=== PATIENT | female | born 1940 | race Caucasian/White ===

== ENCOUNTER 2021-12-14 07:12 | Inpatient (IN) | payer OTHER ==
[~2021-12-14] VITALS: Ht 152.4 cm; Wt 76.5 kg
[~2021-12-14 07:12] MED LIST: ANAS1TAB7 PO; BENA40TA83 PO; BISO1TAB17 PO; CLON0.1T PO
[2021-12-14] MEDS ORDERED: MORPHINE SULFATE INJ 2 MG/ml SYRG IV PRN (07:30)
[2021-12-14] MEDS ORDERED: NITROGLYCERIN 0.4 MG SL TAB SL PRN (07:30)
[2021-12-14] MEDS ORDERED: ceFAZolin 1GM/50ML 50 ML IV ONE (07:30)
[2021-12-14] MEDS ORDERED: ACETAMINOPHEN 500 MG TAB PO PRN (07:30)
[2021-12-14] MEDS: SODIUM CHLORIDE 0.9% 1,000 ML IV SCH ×3 (07:30→23:30)
[2021-12-14] MEDS ORDERED: METHYLENE BLUE 0.5% 5MG/ML 10ml AMP IV ONE (07:33)
[2021-12-14] MEDS ORDERED: LIDOCAINE W/ EPINEPHRINE 1% 20ML VIAL ONE (07:35)
[2021-12-14] MEDS ORDERED: BUPIVACAINE 0.25% INJ 50ML VIAL ONE (07:35)
[2021-12-14] MEDS ORDERED: ONDANSETRON HCL 4 MG/2 ML VIAL IV ONE (07:54)
[2021-12-14] MEDS ORDERED: MIDAZOLAM HCL 2MG/2ML 2ml VIAL (1mg/ml) ONE (08:43)
[2021-12-14] MEDS ORDERED: fentaNYL CITRATE 5 ML ONE (08:43)
[2021-12-14] MEDS ORDERED: fentaNYL CITRATE 100 MCG/2 ML VL ONE (08:43)
[2021-12-14] MEDS ORDERED: ROCURONIUM 10MG/ML 10ML VIAL IV ONE (08:55)
[2021-12-14] MEDS ORDERED: PROPOFOL 10 MG/ML 20 ML IV ONE ×2 (08:56→09:47)
[2021-12-14] MEDS ORDERED: HYDROmorphone HCL 2 MG/ML VL/or syr ONE (09:50)
[2021-12-14] MEDS ORDERED: ceFAZolin 1GM VL ONE (10:24)
[2021-12-14] MEDS ORDERED: ONDANSETRON HCL 4 MG/2 ML VIAL IV PRN (11:15)
[2021-12-14] MEDS ORDERED: HYDROmorphone HCL 2 MG/ML VL/or syr IV PRN ×2 (11:15)
[2021-12-14] MEDS ORDERED: GLYCOPYRROLATE 0.2 MG/ML 1ML VIAL ONE (11:51)
[2021-12-14] MEDS ORDERED: NALOXONE HCL 0.4 MG/ML VIAL ONE (11:51)
[2021-12-14] MEDS ORDERED: NEOSTIGMINE 1 MG/ML INJ (10mg/10ML VIAL) ONE (11:51)
[2021-12-14] MEDS ORDERED: HYDROmorphone HCL 2 MG/ML VL/or syr IV ONE ×2 (12:13→12:26)
[2021-12-14] MEDS ORDERED: LABETALOL HCL 5 MG/ML 4ML SYRINGE IV ONE ×5 (12:22→13:01)
[2021-12-14] MEDS: cloNIDine HCL 0.1 MG TAB PO SCH ×2 (14:00→21:44)
[2021-12-14 17:29] VITALS: BP 199/61
[2021-12-14] MEDS: LABETALOL HCL 5 MG/ML 4ML SYRINGE IV PRN ×2 (18:01→23:23)
[2021-12-14 19:03] VITALS: BP 199/61
[2021-12-14] MEDS: BENAZEPRIL HCL 10 MG TAB PO SCH (21:45)
[2021-12-14 22:00] VITALS: BP 160/68
[2021-12-14] MEDS ORDERED: hydrALAZINE HCL 20 MG/ML VL IV PRN (22:00)
[2021-12-15] MEDS: ONDANSETRON HCL 4 MG/2 ML VIAL IV PRN ×2 (02:53→08:25)
[2021-12-15] MEDS: LABETALOL HCL 5 MG/ML 4ML SYRINGE IV PRN (02:53)
[2021-12-15] MEDS: MORPHINE SULFATE 4 MG/ML SYR/VIAL IV PRN ×2 (03:56→08:26)
[2021-12-15 05:00] VITALS: BP_SYST 140; BP_SYST 149; BP_DIAS 55; BP_DIAS 66
[2021-12-15] MEDS: cloNIDine HCL 0.1 MG TAB PO SCH ×3 (06:32→21:56)
[2021-12-15] MEDS: SODIUM CHLORIDE 0.9% 1,000 ML IV SCH ×3 (07:30→23:30)
[2021-12-15 09:00] VITALS: BP 154/60
[2021-12-15 10:24] VITALS: BP 154/60
[2021-12-15 13:00] VITALS: BP 168/52
[2021-12-15] MEDS: HYDROcodone-ACET 5/325MG TAB PO PRN (16:39)
[2021-12-15 17:00] VITALS: BP 129/56
[2021-12-15] MEDS: BENAZEPRIL HCL 10 MG TAB PO SCH (21:56)
[2021-12-15 22:00] VITALS: BP 132/56
[2021-12-16] VITALS (7 sets, daily range): BP systolic 102–159; BP diastolic 57–88
[2021-12-16] MEDS: cloNIDine HCL 0.1 MG TAB PO SCH ×3 (06:04→22:10)
[2021-12-16] MEDS: SODIUM CHLORIDE 0.9% 1,000 ML IV SCH ×3 (07:30→23:30)
[2021-12-16 12:19] LABS: Basophils # (auto) 0 10 ^3/uL (0-0.2); Basophils % (auto) 0.2 % (0.0-2.0); Eosinophils # (auto) 0 10 ^3/uL (0-0.8); Hematocrit 33.2 % (36.0-46.0); Hemoglobin 11.3 g/dL (12.2-16.2); Lymphocytes # (auto) 1.4 10 ^3/uL (0.4-5.4); Lymphocytes % (auto) 13.1 % (10.0-50.0); Mean Corpuscular Hemoglobin 31.1 pg (28.0-32.0); Mean Corpuscular Hgb Conc. 34.1 g/dL (32.0-36.0); Mean Corpuscular Volume 90.9 fL (80.0-100.0); Monocytes # (auto) 0.8 10 ^3/uL (0-1.3); Monocytes % (auto) 7.4 % (0.0-12.0); Neutrophils # (auto) 8.2 10 ^3/uL (1.6-8.6); Neutrophils % (auto) 79.3 % (37.0-80.0); Red Blood Cells 3.65 10^6/uL (4.0-5.20); Red Cell Distribution Width 13.3 % (11.8-14.3); White Blood Cell 10.4 10^3/uL (4.4-10.8)
[2021-12-16 12:54] LABS: Potassium 4.2 mmol/L (3.5-5.1)
[2021-12-16 13:06] LABS: Albumin 2.9 g/dL (3.4-5.0); BUN/Creatinine Ratio 24.2; Bilirubin, Total 0.8 mg/dL (0.2-1.0); Calcium 8.6 mg/dL (8.5-10.1); Total Protein 7.4 g/dL (6.4-8.2)
[2021-12-16] MEDS: HYDROcodone-ACET 5/325MG TAB PO PRN (15:47)
[2021-12-16] MEDS ORDERED: cefTRIAXone 1GM/50ML D5W 50 ML IV ONE (17:15)
[2021-12-16] MEDS: BENAZEPRIL HCL 10 MG TAB PO SCH (22:09)
[2021-12-17 05:00] VITALS: BP 140/54
[2021-12-17] MEDS: cloNIDine HCL 0.1 MG TAB PO SCH ×2 (06:46→14:14)
[2021-12-17] MEDS: SODIUM CHLORIDE 0.9% 1,000 ML IV SCH (06:54)
[2021-12-17 08:57] VITALS: BP 155/51
[2021-12-17 11:29] LABS: Basophils # (auto) 0 10 ^3/uL (0-0.2); Basophils % (auto) 0.4 % (0.0-2.0); Eosinophils # (auto) 0.1 10 ^3/uL (0-0.8); Eosinophils % (auto) 0.7 % (0.0-7.0); Hematocrit 32.5 % (36.0-46.0); Hemoglobin 10.9 g/dL (12.2-16.2); Lymphocytes # (auto) 1.4 10 ^3/uL (0.4-5.4); Lymphocytes % (auto) 17.8 % (10.0-50.0); Mean Corpuscular Hemoglobin 30.3 pg (28.0-32.0); Mean Corpuscular Hgb Conc. 33.5 g/dL (32.0-36.0); Mean Corpuscular Volume 90.5 fL (80.0-100.0); Monocytes # (auto) 0.6 10 ^3/uL (0-1.3); Monocytes % (auto) 7.1 % (0.0-12.0); Neutrophils # (auto) 5.9 10 ^3/uL (1.6-8.6); Nucleated Red Blood Cells % 0.1 %; Red Blood Cells 3.59 10^6/uL (4.0-5.20); Red Cell Distribution Width 12.9 % (11.8-14.3)
[2021-12-17 12:11] LABS: Anion Gap 7 (5-15); BUN/Creatinine Ratio 23.3; Blood Urea Nitrogen 17 mg/dL (7-18); Calcium 8.5 mg/dL (8.5-10.1); Carbon Dioxide 28 mmol/L (21-32); Chloride 104 mmol/L (98-107); GFR African American 98 mL/min; GFR Non-African American 81 mL/min; Glucose 96 mg/dL (74-106); Potassium 4.3 mmol/L (3.5-5.1); Sodium 139 mmol/L (136-145)
[2021-12-17 12:56] VITALS: BP 153/57
[2021-12-17 17:19] VITALS: BP 155/87
== END 2021-12-17 18:38 | disposition home or self-care (01) | DRG 743 ==
LOC: SUR 07:12 → OVERFLOW 07:25 → WEST WING 15:50
PROVIDERS: ADMIT Obstetrics & Gynecology; ATTEND Obstetrics & Gynecology
PROC: 0UT94ZL Resection of Uterus, Supracervical, Percutaneous Endoscopic Approach (ICD-10-PCS; 2021-12-14)
PROC: 0UT24ZZ Resection of Bilateral Ovaries, Percutaneous Endoscopic Approach (ICD-10-PCS; 2021-12-14)
PROC: 8E0W4CZ Robotic Assisted Procedure of Trunk Region, Percutaneous Endoscopic Approach (ICD-10-PCS; 2021-12-14)
PROC: 0UT74ZZ Resection of Bilateral Fallopian Tubes, Percutaneous Endoscopic Approach (ICD-10-PCS; principal; 2021-12-14 08:54)
DX: N81.3 Complete uterovaginal prolapse (principal); K66.0 Peritoneal adhesions (postprocedural) (postinfection); I10 Essential (primary) hypertension; Z20.822 Contact with and (suspected) exposure to COVID-19; Z88.5 Allergy status to narcotic agent; Z82.49 Family history of ischemic heart disease and other diseases of the circulatory system; Z88.1 Allergy status to other antibiotic agents; E66.9 Obesity, unspecified; Z68.32 Body mass index [BMI] 32.0-32.9, adult
CPT/HCPCS: 36415; 80048; 80053; 85025; 86850; 86900; 86901; 87040; 87086; 87088; 87186; G0378; J0690; J0696; J2250; J2405; J2704; J3490

== ENCOUNTER 2023-05-06 09:41 | Emergency (ER) | payer OTHER ==
[~2023-05-06] VITALS: Ht 154.9 cm; Wt 74.9 kg
[2023-05-06] MEDS ORDERED: cloNIDine HCL 0.1 MG TAB ONE (09:54)
[2023-05-06 10:00] VITALS: BP 239/80; PULSE 77; RESP 16; O2SAT 99
[2023-05-06] MEDS ORDERED: cloNIDine HCL 0.1 MG TAB PO ONE (10:00)
[2023-05-06 10:30] LABS: Basophils # (auto) 0 10 ^3/uL (0-0.2); Basophils % (auto) 0.5 % (0.0-2.0); Eosinophils # (auto) 0 10 ^3/uL (0-0.8); Eosinophils % (auto) 0.5 % (0.0-7.0); Hematocrit 38.1 % (36.0-46.0); Hemoglobin 12.5 g/dL (12.2-16.2); Lymphocytes # (auto) 2.5 10 ^3/uL (0.4-5.4); Lymphocytes % (auto) 34.7 % (10.0-50.0); Mean Corpuscular Hemoglobin 30.6 pg (28.0-32.0); Mean Corpuscular Hgb Conc. 32.8 g/dL (32.0-36.0); Mean Corpuscular Volume 93.3 fL (80.0-100.0); Monocytes # (auto) 0.5 10 ^3/uL (0-1.3); Monocytes % (auto) 7.4 % (0.0-12.0); Neutrophils # (auto) 4.1 10 ^3/uL (1.6-8.6); Neutrophils % (auto) 56.9 % (37.0-80.0); Nucleated Red Blood Cells % 0.1 %; Red Blood Cells 4.09 10^6/uL (4.0-5.20); Red Cell Distribution Width 13.5 % (11.8-14.3); White Blood Cell 7.1 10^3/uL (4.4-10.8)
[2023-05-06 10:51] LABS: Alanine Aminotransferase 13 U/L (7-40); Alkaline Phosphatase 71 U/L (46-116); Anion Gap 9 (5-15); Aspartate Aminotransferase 11 U/L (13-40); BUN/Creatinine Ratio 32.4 (10.0-20.0); Blood Urea Nitrogen 33 mg/dL (9-23); Calcium 9.5 mg/dL (8.5-10.1); Carbon Dioxide 26 mmol/L (20-30); Chloride 105 mmol/L (98-107); Glucose 88 mg/dL (74-106); Potassium 4.4 mmol/L (3.5-5.1); Sodium 140 mmol/L (136-145)
[2023-05-06 10:52] LABS: Albumin 4.5 g/dL (3.2-4.8); Bilirubin, Total 0.3 mg/dL (0.2-1.0); Total Protein 7.7 g/dL (5.7-8.2)
== END 2023-05-06 16:26 | disposition home or self-care (01) ==
LOC: ER 09:41
DX: R42 Dizziness and giddiness (principal); I10 Essential (primary) hypertension; Z90.710 Acquired absence of both cervix and uterus
CPT/HCPCS: 36415; 70450; 80053; 82962; 84484; 85025; 93005

== ENCOUNTER 2024-01-16 20:34 | Emergency (ER) | payer OTHER ==
[~2024-01-16] VITALS: Ht 154.9 cm; Wt 77.0 kg
[2024-01-16 20:51] VITALS: BP 132/44; PULSE 71; RESP 18; O2SAT 97
[2024-01-16] MEDS ORDERED: AZIT1POW PO (20:55)
== END 2024-01-16 23:26 | disposition left against medical advice (07) ==
LOC: ER 20:34
DX: U07.1 COVID-19 (principal); I10 Essential (primary) hypertension; Z85.9 Personal history of malignant neoplasm, unspecified; Z98.890 Other specified postprocedural states; Z88.8 Allergy status to other drugs, medicaments and biological substances; Z91.09 Other allergy status, other than to drugs and biological substances; Z79.899 Other long term (current) drug therapy